=== PATIENT | female | born 1960 | race Caucasian/White ===

== ENCOUNTER 2018-06-25 19:02 | Inpatient (IN) ==
--- NOTE | 2018-06-25 20:07 | ED ---
HPI General Chief complaint: Overdose Stated complaint: Med Clear/Psych Eval Time Seen by Provider: 06/25/18 19:56 Source: EMS Mode of arrival: EMS Limitations: no limitations History of Present Illness HPI narrative: 58yo F who is a paraplegic secondary to spinal cord injury was transferred from [facility] for psychiatric evaluation. Pt was admitted there on 06/21/18 for benzodiazepine and alcohol overdose and was intubated for airway protection. Pt was subsequently placed on precedex drip and then weaned off mechanical ventilation. Pt is now medically clear for psych evaluation under Mar[place] Act and Dr. Plasencia (psychiatrist) is the accepting physician. Related Data Home Medications Medication Instructions Recorded Confirmed baclofen 10 mg PO QID 06/03/18 06/25/18 escitalopram oxalate [Lexapro] 20 mg PO DAILY 06/03/18 06/25/18 mirabegron [Myrbetriq] 25 mg PO DAILY 06/03/18 06/25/18 Allergies Allergy/AdvReac Type Severity Reaction Status Date / Time No Known Allergies Allergy Verified 06/03/18 13:23 Review of Systems ROS: all other systems reviewed are negative [facility] Social History Social History Substance History: No History of Abuse Second Hand Smoke Exposure: No Smoking Status: Former smoker Tobacco Type: Cigarettes How Often Do You Have a Drink Containing Alcohol: 4 or more times a week Recent Travel in [facility] within the Last 8 Weeks: No Recent Out of Country Travel within the Last 8 Weeks: No Exam Narrative Exam Narrative: GENERAL: 58yo F not in distress. SKIN: Focused skin assessment warm/dry. HEAD: Atraumatic. Normocephalic. EYES: Pupils equal and round. No scleral icterus. No injection or drainage. ENT: No nasal bleeding or discharge. Mucous membranes pink and moist. NECK: Trachea midline. No JVD. CARDIOVASCULAR: Regular rate and rhythm. No murmur appreciated. RESPIRATORY: No accessory muscle use. Clear to auscultation. Breath sounds equal bilaterally. GASTROINTESTINAL: Abdomen soft, non-tender, nondistended. MUSCULOSKELETAL: No obvious deformities. No clubbing. No cyanosis. No edema. NEUROLOGICAL: Awake and alert. No obvious cranial nerve deficits. Paraplegic, unable to lift bilateral lower extremity. Normal speech. PSYCHIATRIC: Appropriate mood and affect; insight and judgment normal. Course Initial Documented Vital Signs Temperature 98.8 F 06/25/18 19:29 Pulse Rate 86 06/25/18 19:29 Respiratory Rate 18 06/25/18 19:29 Blood Pressure 159/77 H 06/25/18 19:29 Pulse Oximetry 98 06/25/18 19:29 Last Documented Vital Signs Temperature 98.8 F 06/25/18 19:29 Pulse Rate 86 06/26/18 11:43 Respiratory Rate 18 06/26/18 11:43 Blood Pressure 155/89 H 06/26/18 11:43 Pulse Oximetry 97 06/26/18 11:43 Medical Decision Making MDM Narrative Medical decision making narrative: 58yo F was transferred from [facility] for psych evaluation. Pt is AAOx3 and said she was feeling depressed. Said she drinks alcohol daily so will place her on CIWA protocol. She is requesting lexapro 20mg which she has always taken for her depression but [facility] didnt give it to her so will give 1 dose of lexapro 20mg PO. Pt has no medically complaints currently and is currently not in alcohol withdrawal. Pt has been medically clear by [facility] so will not repeat labs. Awaiting psych evaluation. Medical Screen Exam Complete: Yes Emergency Medical Condition: Yes Differential Diagnosis Differential Diagnosis: Depression vs. suicidal ideation vs. alcohol abuse Discharge Plan Discharge Disposition Patient Disposition: Sign Out(ED Internal Use Only) Discharge Order Discharge Orders: ED Use Only Admit Order (Routine); Ordered 06/26/18 Ordered By: Chicho George Discharge Details Diagnosis: Depression Physicians Team ED Provider: Zahraa Leahy Primary Care Provider: Primary Care Kike,Debra Attending Provider: Ant Rice Other Providers: Juline Helm ED Status: Left Department Discharge Information Discharge Date/Time: 06/26/18 12:38
[2018-06-25] MEDS ORDERED: Haloperidol Inj 5 MG/ML Ampul IV.PUSH PRN (20:14)
[2018-06-26] MEDS ORDERED: Baclofen 10 MG Tablet PO ONE ×2 (01:13→08:41)
[2018-06-26] MEDS: LORazepam 1 MG Tablet PO PRN ×2 (07:19→12:02)
[2018-06-26] MEDS ORDERED: Bisacodyl 10 MG Supp RECTAL PRN (11:37)
[2018-06-26] MEDS ORDERED: Aluminum/Magnesium/Simethacone Susp 30 ML UDC PO PRN (11:37)
--- NOTE | 2018-06-26 11:56 | P.HPPSY ---
Provisional Diagnosis Admission Date: June 25, 2018 19:02 [place] I.: Major depressive disorder, recurrent, severe, without psychosis, anxiety, alcohol and cannabis use disorder Competence Certification of Person's Competence To Provide Express and Informed Consent I have personally examined [place] Myrick, a person being served at [facility] on, June 26, 2018 1142. Express and informed consent means consent voluntarily given in writing, by a competent person, after sufficient explanation and disclosure of the subject matter involved to enable the person to make a knowing and willful decision without any element of force, fraud, deceit, duress, or other form of constraint or coercion. This person is 18 years of age or older, is not now known to be incompetent to consent to treatment with a guardian advocate, and does not have a health care surrogate or proxy currently making medical treatment decisions. I have found this person to be one of the following: [] Competent to provide express and informed consent, as defined above, for voluntary admission to this facility and is competent to provide express and informed consent for treatment. He/she has the consistent capacity to make well reasoned, willful, and knowing decisions concerning his or her medical or mental health treatment. The person fully and consistently understands the purpose of the admission for examination/placement and is fully capable of personally exercising all rights assured [place] Incompetent to provide express and informed consent to voluntary admission, and this is incompetent to provide express and informed consent to treatment. The person must be transferred to involuntary status and a petition for a guardian advocate filed with the Circuit Court. [x] Refusing to provide express and informed consent to voluntary admission but is competent to provide express and informed consent for treatment. The person must be discharged or transferred to involuntary status. Form shall be completed within 24 hours of a person's arrival at the receiving facility and filed in the clinical record of each person: 1. Admitted on a voluntary basis 2. Permitted to provide express and informed consent to his/her own treatment 3. Allowed to transfer from involuntary to voluntary status 4. Prior to permitting a person to consent to his or her own treatment after having been previously found incompetent to consent to treatment. History of Present Illness Capacity: Has capacity History of Present Illness: The patient is a 58-year-old woman, domiciled in a [facility] with her , no kids, unemployed, supported by disability, with a psychiatric history of depression, anxiety, alcohol use disorder, cannabis use disorder, treated with Lexapro 20 mg, Xanax 0.25 mg 3 times daily prescribed by PCP, no previous psychiatric hospitalizations, no previous suicidal attempts, medical history of a paraplegia secondary to spinal cord injury and who was transferred from [facility] for psychiatric evaluation. Pt was admitted there on 06/21/18 for benzodiazepine and alcohol overdose and was intubated for airway protection. Pt was subsequently placed on precedex drip and then weaned off mechanical ventilation. Pt is now medically clear for psych evaluation under [place] Act and Dr. Plasencia (psychiatrist) is the accepting physician. Chart was reviewed. Patient was seen for psychiatric reevaluation in the D pod. On my psychiatric evaluation the patient presents tearful, but current and cooperative. The patient reports that she has been feeling very overwhelmed lately, with increased anxiety and depression given her medical situation and her decreased functionality. Patient says that she did not overdose with intentions to , but to go away from my problems. She says that she was drinking alcohol and took some Xanax to go to sleep. She says that she drinks at least half to 1 bottle of wine every day and uses Xanax sometimes. She says that she has been using alcohol for a long time now, for at least 3 years continuously, but she denies symptoms of withdrawal when she does not take alcohol. She says that she has been sober intermittently, for 3, 4 days sometimes for weeks. The patient says that her life at times become very miserable, she cries every day, and feels hopeless, helpless, desperate, and with continuous catastrophic thinking. She thinks about dying and committed suicide, but she says that she had never had the intentions to do it. The patient is fully oriented x3, without no attention deficit. She becomes tearful several times during the evaluation, admits that she needs help. She says that the Lexapro was helping, but lately does not seem to be helping anymore. PPHx: with a psychiatric history of depression, anxiety, alcohol use disorder, cannabis use disorder, treated with Lexapro 20 mg, Xanax 0.25 mg 3 times daily prescribed by PCP, no previous psychiatric hospitalizations, no previous suicidal attempts, PMHx: medical history of a paraplegia secondary to spinal cord injury Substance Hx: Patient reports daily use of alcohol, half to 1 bottle of wine every day, denies withdrawal symptoms, denies previous detox rehab, uses marijuana some time Family Hx: No family psychiatric Social HX: She was born and raised in [place], domiciled in a [facility] with her , no kids, unemployed, supported by disability, used to work as a project manager finance, her highest level of education is a college degree Review of Systems All other systems reviewed negative except as stated in HPI Psychiatric: Reports anxiety, Reports depression, Reports hopelessness, Reports mood swings, Reports thoughts of hurting/killing yourself PMFSH - History History Provided By: Patient - Medical History Medical History: Medical History (Last Reviewed 06/25/18 @ 21:24 by Abida Sparks) Incontinence of bowel Incontinence of urine Traumatic spinal cord compression Weakness - Surgical History Surgical History: Surgical History (Last Reviewed 06/25/18 @ 21:24 by Abida Sparks) H/O colectomy H/O laminectomy H/O spinal fusion - Tobacco History Second Hand Smoke Exposure: No Smoking Status: Never smoker Tobacco Type: Cigarettes - Alcohol History How Often Do You Have a Drink Containing Alcohol: Monthly or less - Substance Use History Substance History: No History of Abuse - Immunization History Tetanus Immunization: <5 Years Medications and Allergies Active Medications: Active Medications Al Hydrox/Mg Hydrox/Simethicone (Mag-Al Plus Susp Liq) 30 ml PO Q6H PRN PRN Reason: DYSPEPSIA Al Hydroxide/Mg Hydroxide (Milk Of Magnesia Liq) 30 ml PO Q12H PRN PRN Reason: Mild Constipation Bisacodyl (Dulcolax Supp) 10 mg RECTAL DAILY PRN PRN Reason: SEVERE CONSITIPATION Clonazepam (Klonopin) 0.5 mg PO Q8HR CARMINE Flumazenil (Romazecon Inj) 0.2 mg IV.PUSH Q1M PRN PRN Reason: OVERSEDATION Haloperidol Lactate (Haldol Inj) 1 mg IV.PUSH Q15M PRN PRN Reason: for severe agitation Lactulose (Lactulose Liq) 30 ml PO DAILY PRN PRN Reason: SEVERE CONSITIPATION Lorazepam (Ativan Inj) 1 mg IV.PUSH Q4H PRN PRN Reason: for CIWA 8-10 Lorazepam (Ativan Inj) 2 mg IV.PUSH Q15M PRN PRN Reason: for CIWA > 20 Lorazepam (Ativan Inj) 2 mg IV.PUSH Q1H PRN PRN Reason: for CIWA 15-20 Lorazepam (Ativan Inj) 2 mg IV.PUSH Q2H PRN PRN Reason: for CIWA 11-14 Lorazepam (Ativan) 1 mg PO Q4H PRN PRN Reason: for CIWA 8-10 Last Admin: 06/26/18 07:19 Dose: 1 mg Lorazepam (Ativan) 2 mg PO Q2H PRN PRN Reason: for CIWA 11-14 Naltrexone HCl (Revia) 50 mg PO DAILY CARMINE Senna/Docusate Sodium (Paulina-Colace) 1 tab PO BID CARMINE Sennosides (Senokot) 17.2 mg PO Q12H PRN PRN Reason: Moderate Constipation Venlafaxine HCl (Effexor) 25 mg PO DAILY CARMNIE Allergies Allergy/AdvReac Type Severity Reaction Status Date / Time No Known Allergies Allergy Verified 06/03/18 13:23 Home Medications Medication Instructions Recorded Confirmed Type baclofen 10 mg PO QID 06/03/18 06/25/18 History escitalopram oxalate [Lexapro] 20 mg PO DAILY 06/03/18 06/25/18 History mirabegron [Myrbetriq] 25 mg PO DAILY 06/03/18 06/25/18 History Exam Vital signs: Vital Signs 06/25/18 19:29 06/26/18 03:39 06/26/18 07:16 Temperature 98.8 F Pulse Rate 86 76 88 Respiratory Rate 18 18 18 Blood Pressure 159/77 H 177/81 H 180/91 H Pulse Oximetry 98 98 97 06/26/18 08:24 Temperature Pulse Rate 84 Respiratory Rate 18 Blood Pressure 166/77 H Pulse Oximetry 97 Narrative: No tremors, no EPS, no catatonia, no withdrawal symptom - Constitutional no acute distress, mild distress - Routine HEENT Exam Head: Present: normocephalic, atraumatic Eye: Present: EOMI ENT: Present: mucous membranes moist Mental Status Examination Appearance: Appropriate Consciousness: Alert Orientation: x4 Motor Activity: Normal gait Speech: Unremarkable Language: Adequate Fund of Knowledge: Adequate Attention and Concentration: Adequate Memory: Unremarkable Mood: Sad Affect: Sad Thought Process & Associations: Intact Thought Content: Appropriate Hallucination Type: None Delusion Type: None Suicidal Ideation: No Suicidal Plan: No Suicidal Intention: No Homicidal Ideation: No Homicidal Plan: No Homicidal Intention: No Insight: Adequate Judgment: Adequate Assessment and Plan - Assessment (1) Major depressive disorder, recurrent severe without psychotic features Code(s): F33.2 - Major depressive disorder, recurrent severe without psychotic features Status: Acute - Plan Plan: On my psychiatric evaluation today the patient presents calm, cooperative, very tearful throughout the interview. The patient reports that in the last weeks she has been feeling increasingly overwhelmed, depressed, anxious, with intrusive thoughts, hopelessness, helplessness, worthlessness, guiltiness, and suicidal thoughts, no plan in the context of decreased functionality, chronic medical illnesses, increased alcohol use disorder. The patient has overdose with alcohol and Xanax with intentions of "going away from my problem"with very negative medical consequences, the patient had to be transferred to the hospital and be intubated. The patient has a psychiatric history of depression , anxiety, alcohol and cannabis use disorder, has been treated with Lexapro 20 mg, Xanax 0.25 mg. She denies previous psychiatric history. However, at this moment the patient has an elevated risk of danger to self, she needs to be admitted for stabilization of depression and safety. Will discontinue the Lexapro and Xanax. We will start Effexor 25 mg daily, clonazepam 0.5 mg twice daily to protect the patient from anxiety and potential withdrawal. CIWA protocol. Also will start naltrexone 50 mg to decrease alcohol craving. Transfer to med psych unit. Support, motivational psych education provided Justification for Continued Inpatient Stay: Continue admission.
[2018-06-26] MEDS: clonazePAM 0.5 MG Tablet PO SCH ×2 (14:32→21:01)
[2018-06-26] MEDS: Baclofen 10 MG Tablet PO SCH ×2 (17:35→20:37)
[2018-06-26] MEDS: Senna/Docusate Sodium 8.6/50 MG Tablet PO SCH (20:37)
[2018-06-27] MEDS: clonazePAM 0.5 MG Tablet PO SCH ×3 (05:47→22:10)
[2018-06-27 09:27] LABS: Anion Gap 9 meq/L (5-15); Blood Urea Nitrogen 10 mg/dL (7-18); Carbon Dioxide 25.7 meq/L (21.0-32.0); Chloride 106 meq/L (98-107); Glomerular Filtration Rate Greater Than 89 mL/min (>89); Glucose,Random 109 mg/dL (74-106); Potassium 3.6 meq/L (3.5-5.1); Sodium 141 meq/L (136-145)
[2018-06-27 09:28] LABS: Cholesterol 157 mg/dL (120-200); Triglycerides 110 mg/dL (42-150)
[2018-06-27 09:30] LABS: Chol/HDL Ratio 4.26 Ratio; HDL Cholesterol 36.8 mg/dL (40.0-60.0); LDL Cholesterol,Calculated 98 mg/dL (0-99)
[2018-06-27 09:35] LABS: Hemoglobin A1c 4.4 % (4.3-6.0)
[2018-06-27] MEDS: Tolterodine Tartrate LA 2 MG Capsule PO SCH (09:40)
[2018-06-27] MEDS: Senna/Docusate Sodium 8.6/50 MG Tablet PO SCH ×2 (09:40→22:10)
[2018-06-27] MEDS: Baclofen 10 MG Tablet PO SCH ×4 (10:27→22:10)
--- NOTE | 2018-06-27 14:03 | P.PNPSY ---
Subjective Remarks: This is a request for second opinion. Admission note was reviewed and I agree with the history. Patient was seen and case was discussed with nursing. Patient admits to a suicide attempt with Xanax and alcohol. She has good insight into what she did and is looking to get better. Stressors include a recent diagnosis of cancer and her losing his job. Review of Systems All other systems reviewed negative except as stated in HPI Mental Status Examination Appearance: Appropriate Consciousness: Alert Orientation: x4 Motor Activity: Normal gait Speech: Unremarkable Language: Adequate Fund of Knowledge: Adequate Attention and Concentration: Adequate Memory: Unremarkable Mood: Sad Affect: Sad Thought Process & Associations: Intact Thought Content: Appropriate Hallucination Type: None Delusion Type: None Suicidal Ideation: No Suicidal Plan: No Suicidal Intention: No Homicidal Ideation: No Homicidal Plan: No Homicidal Intention: No Insight: Adequate Judgment: Adequate Assessment and Plan - Assessment (1) Major depressive disorder, recurrent severe without psychotic features Code(s): F33.2 - Major depressive disorder, recurrent severe without psychotic features Status: Acute - Plan Plan: Continue current treatment plan. I agree with the first opinion to continue petition. Criteria include suicide attempt Justification for Continued Inpatient Stay: Patient would decompensate in a less restrictive setting
[2018-06-28] MEDS: clonazePAM 0.5 MG Tablet PO SCH ×3 (05:38→21:01)
[2018-06-28] MEDS: Tolterodine Tartrate LA 2 MG Capsule PO SCH (09:35)
[2018-06-28] MEDS: Baclofen 10 MG Tablet PO SCH ×4 (09:35→21:01)
[2018-06-28] MEDS: Senna/Docusate Sodium 8.6/50 MG Tablet PO SCH ×2 (11:17→21:01)
--- NOTE | 2018-06-28 13:37 | P.PNPSY ---
Subjective Remarks: Patient was seen and case discussed with nursing. Patient continues to improve. She is bright and cheerful during the interview. She is goal oriented and is looking forward to seeing a psychiatrist outpatient. Affect is congruent with mood. At this time, she denies suicidal or homicidal ideation intent or plan. Review of Systems All other systems reviewed negative except as stated in HPI Mental Status Examination Appearance: Appropriate Consciousness: Alert Orientation: x4 Motor Activity: Normal gait Speech: Unremarkable Language: Adequate Fund of Knowledge: Adequate Attention and Concentration: Adequate Memory: Unremarkable Mood: Sad Affect: Sad Thought Process & Associations: Intact Thought Content: Appropriate Hallucination Type: None Delusion Type: None Suicidal Ideation: No Suicidal Plan: No Suicidal Intention: No Homicidal Ideation: No Homicidal Plan: No Homicidal Intention: No Insight: Adequate Judgment: Adequate Assessment and Plan - Assessment (1) Major depressive disorder, recurrent severe without psychotic features Code(s): F33.2 - Major depressive disorder, recurrent severe without psychotic features Status: Acute - Plan Plan: Continue current treatment plan Justification for Continued Inpatient Stay: Patient would decompensate in a less restrictive setting
[2018-06-28 17:14] VITALS: O2SAT 93
[2018-06-28] MEDS: LORazepam 1 MG Tablet PO PRN (21:01)
[2018-06-29] MEDS: clonazePAM 0.5 MG Tablet PO SCH ×2 (05:51→13:58)
[2018-06-29 06:35] VITALS: BP 122/58; PULSE 91; RESP 15; TEMP 97.6
[2018-06-29] MEDS: Baclofen 10 MG Tablet PO SCH ×2 (08:43→13:11)
[2018-06-29] MEDS: Tolterodine Tartrate LA 2 MG Capsule PO SCH (08:43)
[2018-06-29] MEDS: Senna/Docusate Sodium 8.6/50 MG Tablet PO SCH (08:44)
--- NOTE | 2018-06-29 11:19 | P.DSPSY ---
Psychiatry Discharge Summary Inpatient Psychiatric care?: Yes Advance Directives: No Other Reason for Unknown: doesn't have one Mental Health Advance Directive: No Health Care Proxy: No - Admission Admission Date: June 26, 2018 11:43 - Admission Diagnosis (1) Major depressive disorder, recurrent severe without psychotic features Code(s): F33.2 - Major depressive disorder, recurrent severe without psychotic features Brief History: The patient is a 58-year-old woman, domiciled in a [facility] with her , no kids, unemployed, supported by disability, with a psychiatric history of depression, anxiety, alcohol use disorder, cannabis use disorder, treated with Lexapro 20 mg, Xanax 0.25 mg 3 times daily prescribed by PCP, no previous psychiatric hospitalizations, no previous suicidal attempts, medical history of a paraplegia secondary to spinal cord injury and who was transferred from [facility], [place] for psychiatric evaluation. Pt was admitted there on 06/21/18 for benzodiazepine and alcohol overdose and was intubated for airway protection. Pt was subsequently placed on precedex drip and then weaned off mechanical ventilation. Pt is now medically clear for psych evaluation under [facility] and Dr. Plasencia (psychiatrist) is the accepting physician. Chart was reviewed. Patient was seen for psychiatric reevaluation in the D pod. On my psychiatric evaluation the patient presents tearful, but current and cooperative. The patient reports that she has been feeling very overwhelmed lately, with increased anxiety and depression given her medical situation and her decreased functionality. Patient says that she did not overdose with intentions to , but to go away from my problems. She says that she was drinking alcohol and took some Xanax to go to sleep. She says that she drinks at least half to 1 bottle of wine every day and uses Xanax sometimes. She says that she has been using alcohol for a long time now, for at least 3 years continuously, but she denies symptoms of withdrawal when she does not take alcohol. She says that she has been sober intermittently, for 3, 4 days sometimes for weeks. The patient says that her life at times become very miserable, she cries every day, and feels hopeless, helpless, desperate, and with continuous catastrophic thinking. She thinks about dying and committed suicide, but she says that she had never had the intentions to do it. The patient is fully oriented x3, without no attention deficit. She becomes tearful several times during the evaluation, admits that she needs help. She says that the Lexapro was helping, but lately does not seem to be helping anymore. PPHx: with a psychiatric history of depression, anxiety, alcohol use disorder, cannabis use disorder, treated with Lexapro 20 mg, Xanax 0.25 mg 3 times daily prescribed by PCP, no previous psychiatric hospitalizations, no previous suicidal attempts, PMHx: medical history of a paraplegia secondary to spinal cord injury Substance Hx: Patient reports daily use of alcohol, half to 1 bottle of wine every day, denies withdrawal symptoms, denies previous detox rehab, uses marijuana some time Family Hx: No family psychiatric Social HX: She was born and raised in [place], domiciled in a [facility] with her , no kids, unemployed, supported by disability, used to work as a program project analyst, her highest level of education is a college degree Tobacco Use In Past 30 Days: No How Often Do You Have a Drink Containing Alcohol: 4 or more times a week Hospital Course: The patient is a 58-year-old woman, domiciled in a [facility] with her , no kids, unemployed, supported by disability, with a psychiatric history of depression, anxiety, alcohol use disorder, cannabis use disorder, treated with Lexapro 20 mg, Xanax 0.25 mg 3 times daily prescribed by PCP, no previous psychiatric hospitalizations, no previous suicidal attempts, medical history of a paraplegia secondary to spinal cord injury and who was transferred from [facility], [place] for psychiatric evaluation. Pt was admitted there on 06/21/18 for benzodiazepine and alcohol overdose and was intubated for airway protection then weaned off mechanical ventilation and subsequently admitted to the previously Treated for suspicion of suicide attempt via overdose. Patient was admitted to a locked, inpatient psychiatric unit. Appropriate precautions were in place throughout patient's hospital stay. Patient was seen and examined on the unit by psychiatry. Psychotropic medications were started and adjusted. There was no evidence of any suicidality or homicidality on the inpatient unit. Patient's mood improved with the benefit of psychopharmacological treatment and had no behavioral disturbance since admission. Patient was noted to have reached stable mood, noted to participate and engage in treatment and interact with staff adequately. Patient noted to be future oriented with plans to continue treatment and outpatient follow-up appointments for continuity of care. Counselor has arranged discharge plan which patient's had no concerns with patient's discharge and agreed to assist in medication management at home along with adherence to outpatient follow up and alcohol rehab intake apopintment. On the day of discharge: Patient seen and examined; chart reviewed. Case discussed with nurse and counselor. No behavioral issues overnight. On my examination today, the patient denies any suicidal homicidal ideation, intent or plan on direct questioning and contracts for safety. Patient denies any perceptional disturbances and no delusional material verbalized today. Patient denies any side effects from medication and has understanding of medication regimen and education. No physical complaints. Suicide and violence risk assessment on day of discharge both suggest lower imminent risk, and the patient's level of function is adequate for plan level of outpatient care. Patient has maximized benefit from this inpatient psychiatric hospital stay and will be discharged with discharge plan as arranged by counselor. Patient advised to return to psychiatric emergency room for any concerning psychiatric symptoms. Patient agrees with plan. - Discharge Discharge Date: 06/29/18 - Discharge Diagnosis (1) Major depressive disorder, recurrent severe without psychotic features Code(s): F33.2 - Major depressive disorder, recurrent severe without psychotic features Status: Acute Discharge Disposition: Home - Discharge Instructions Discharge Diet: Heart Healthy Diet Activities You Can Perform: Weight Bearing As Tolerat - Discharge Time > 30 minutes Mental Status Examination Appearance: Appropriate Consciousness: Alert Orientation: x4 Motor Activity: Normal gait Speech: Unremarkable Language: Adequate Fund of Knowledge: Adequate Attention and Concentration: Adequate Memory: Unremarkable Mood: Appropriate Affect: Appropriate Thought Process & Associations: Intact Thought Content: Appropriate Hallucination Type: None Delusion Type: None Suicidal Ideation: No Suicidal Plan: No Suicidal Intention: No Homicidal Ideation: No Homicidal Plan: No Homicidal Intention: No Insight: Adequate Judgment: Adequate Discharge/Advance Care Plan - Results Vital Signs: Last Vital Signs Temp 97.6 F 06/29/18 06:00 Pulse 91 H 06/29/18 06:00 Resp 15 06/29/18 06:00 BP 122/58 L 06/29/18 06:00 Pulse Ox 93 L 06/29/18 06:00 Lab Results: Laboratory Results Hemoglobin A1c 4.4 % (4.3-6.0) 06/27/18 08:09 Triglycerides 110 mg/dL (42-150) 06/27/18 08:09 Cholesterol 157 mg/dL (120-200) 06/27/18 08:09 LDL Cholesterol, Calc 98 mg/dL (0-99) 06/27/18 08:09 HDL Cholesterol 36.8 mg/dL (40.0-60.0) L 06/27/18 08:09 Summary of Procedures: none Pending Results: None - Medications Number of antipsychotic medications at discharge: 0 - Discharge Care Plan Goals to Promote Your Health: * To prevent worsening of your condition and complications * To maintain your health at the optimal level Directions to Meet Your Goals: Take your medications as prescribed Follow your dietary instruction Follow activity as directed Keep your appointments as scheduled Take your immunizations and boosters as scheduled If your symptoms worsen call your PCP, if no PCP go to Urgent Care Center or Emergency Room For 27/01 questions related to your inpatient stay or results of tests pending at discharge, please contact Dr. Raf Cyr MD at Smoking is Dangerous to Your Health. Avoid second hand smoking
== END 2018-06-29 14:30 | disposition home or self-care (01) ==
LOC: NEPD 19:02 → NEDA 06-26 11:43 → H4EA 06-26 12:54
PROVIDERS: ADMIT Student in an Organized Health Care Education/Training Program; ATTEND Student in an Organized Health Care Education/Training Program